=== PATIENT | female | born 1990 ===

== ENCOUNTER 2017-03-15 11:56 | Outpatient (CLI) | payer OTHER | END 2017-03-15 12:05 | disposition home or self-care (01) | LOC: LAB 11:56 | DX: Z34.80 Encounter for supervision of other normal pregnancy, unspecified trimester (principal) ==

== ENCOUNTER → 2017-04-09 | Outpatient (CLI) | payer OTHER | END | disposition home or self-care (01) | LOC: PPH VACUNA 12:01 | DX: Z23 Encounter for immunization (principal) ==

== ENCOUNTER 2017-05-02 11:31 | Outpatient (CLI) | payer OTHER | END 2017-05-02 11:43 | disposition home or self-care (01) | LOC: LAB 11:31 | DX: Z34.80 Encounter for supervision of other normal pregnancy, unspecified trimester (principal) ==

== ENCOUNTER 2017-05-17 08:12 | Inpatient (IN) | payer OTHER ==
[~2017-05-17] VITALS: Ht 157.5 cm; Wt 3.2 kg
[2017-05-17] MEDS ORDERED: PRENATABS RX T1 EACH PO (10:15)
[2017-05-17] MEDS ORDERED: ZANTAC150 MG PO (10:15)
== END 2017-05-27 14:39 | DRG 766 ==
LOC: O/R 05-24 06:38 → LDR 05-24 07:00 → OB/GYN 05-24 14:45
PROVIDERS: Specialist
PROC: 4A1HXCZ Monitoring of Products of Conception, Cardiac Rate, External Approach (ICD-10-PCS; 2017-05-24)
PROC: 10D00Z1 Extraction of Products of Conception, Low, Open Approach (ICD-10-PCS; principal; 2017-05-24 07:00)
DX: O34.211 Maternal care for low transverse scar from previous cesarean delivery (principal); Z3A.38 38 weeks gestation of pregnancy; Z37.0 Single live birth